=== PATIENT | male | born 1950 | race Caucasian/White ===

== ENCOUNTER 2021-06-26 08:56 | Inpatient (IN) | payer MEDICARE, SELFPAY ==
[2021-06-26] VITALS (16 sets, daily range): BP systolic 78–114; BP diastolic 58–86; PULSE 81–145; RESP 16–23; TEMP 36.4–37.7; O2SAT 86–96; BMI 27.2; BMI 27.4
--- NOTE | 2021-06-26 09:10 | EDS_ITS ---
HPI History of Present Illness Chief Complaint: Shortness of Breath Detail of Chief Complaint: I need fluids and I do not feel well Informant: patient Onset/Context/Timing Onset: Weeks (Onset approximately 2 weeks ago) Context: Sudden Onset Timing: Continuous Quality: General sense of unwellness and decreased p.o. intake Location: Home Current Severity: Mild Maximum Severity: Moderate Worsened by: Standing Relieved by: Nothing Associated Symptoms Associated Symptoms: Patient became annoyed because of all the questions that were being asked. Narrative Narrative: Patient is a 71-year-old male who presents because of not feeling well for the past 2 weeks with decreased p.o. intake and lightheadedness. He states he has not eaten well. He states he lives alone. He became annoyed with all the questions they were asked. He stated I need fluids Patient was informed that the reason I am asking all the question is to determine what tests are appropriate and what treatment needs to be initiated. Prior similar symptoms: No Recent Illness/Hospitalization: No PFSH PFSH Home Medications NK 06/26/21 [History Last Taken Unknown] Allergy/AdvReac Type Severity Reaction Status Date / Time Sulfa (Sulfonamide Allergy Unknown Unknown Verified 06/26/17 13:19 Antibiotics) as a child Surgical History History of hip replacement Social History (Updated 06/26/21 @ 16:49 by Susan Hassan) household members: none housing: apartment Smoking Status: Heavy Smoker (>10/day) alcohol intake: never substance use type: does not use ROS ROS ED Constitutional Constitutional ED: Denies chills, fever(s), subjective or sweats Eyes Eyes: Denies blurry vision, change in vision or diplopia ENT ENT ED: Denies ear pain, rhinorrhea or sore throat Cardiovascular Cardiovascular: Denies chest pain, orthopnea, palpitations or paroxysmal nocturnal dyspnea Respiratory/Chest Respiratory/Chest: Denies cough, dyspnea, dyspnea on exertion, orthopnea or paroxysmal nocturnal dyspnea Gastrointestinal Gastrointestinal: Denies abdominal pain, diarrhea, nausea or vomiting Genitourinary Genitourinary ED: Denies dysuria, hematuria or urinary frequency Musculoskeletal Musculoskeletal: Denies arthralgias, back pain, myalgias or neck pain Integumentary Denies rash Neurologic Neurologic: Reports weakness; Denies headache(s) or paresthesias Endocrine Endocrinology: Denies polydipsia, polyphagia or polyuria EXAM Physical Exam Const Vital Signs: 06/26/21 08:58 06/26/21 09:25 06/26/21 09:28 Temperature 99.1 F Temperature Source Oral Pulse Rate 93 Pulse Rate [Lying] Pulse Rate [Sitting] Pulse Rate [Standing] Respiratory Rate 16 Respiratory Effort Short of Breath Respiratory Depth Deep Respiratory Pattern Tachypnea Blood Pressure 107/68 Blood Pressure [Lying] Blood Pressure [Sitting] Blood Pressure [Standing] Blood Pressure Mean 81 Blood Pressure Mean [Lying] Blood Pressure Mean [Sitting] Blood Pressure Mean [Standing] Pulse Ox 93 92 Oxygen Delivery Method Room Air Room Air Nasal Cannula Oxygen Flow Rate (L/min) 2 06/26/21 09:30 06/26/21 11:00 06/26/21 11:55 Temperature 99.2 F H 98.3 F Temperature Source Oral Oral Pulse Rate 102 H 98 Pulse Rate [Lying] 145 H Pulse Rate [Sitting] 132 H Pulse Rate [Standing] 120 H Respiratory Rate 20 H 22 H Respiratory Effort Respiratory Depth Respiratory Pattern Blood Pressure 112/78 105/73 Blood Pressure [Lying] 106/70 Blood Pressure [Sitting] 114/78 Blood Pressure [Standing] 108/76 Blood Pressure Mean 89 83 Blood Pressure Mean [Lying] 82 Blood Pressure Mean [Sitting] 90 Blood Pressure Mean [Standing] 86 Pulse Ox 93 93 Oxygen Delivery Method Nasal Cannula Nasal Cannula Oxygen Flow Rate (L/min) 2.5 3 06/26/21 13:12 Temperature Temperature Source Pulse Rate 95 Pulse Rate [Lying] Pulse Rate [Sitting] Pulse Rate [Standing] Respiratory Rate 23 H Respiratory Effort Respiratory Depth Respiratory Pattern Blood Pressure 96/86 H Blood Pressure [Lying] Blood Pressure [Sitting] Blood Pressure [Standing] Blood Pressure Mean 89 Blood Pressure Mean [Lying] Blood Pressure Mean [Sitting] Blood Pressure Mean [Standing] Pulse Ox 95 Oxygen Delivery Method Nasal Cannula Oxygen Flow Rate (L/min) 2 Positive well nourished and well developed General Appearance ED: well developed and NAD; Negative for cyanotic or diaphoretic HEENT Reports TM's clear and dry mucous membranes HEENT Narrative: Head is atraumatic normocephalic. Nares patent. There is no nasal drainage noted. Tympanic Membrane ED: Yes TM's clear Mouth ED: Yes dry mucous membranes Mouth: dry mucous membranes Eyes PERRL and EOMs intact bilaterally General Eye ED: Negative for pale conjunctiva or scleral icterus Neck no lymphadenopathy, supple and no JVD General: Negative for tenderness Resp normal respiratory effort and clear to auscultation bilaterally Effort and Inspection: Negative for pain with movement Cardio regular rate, regular rhythm, S1 normal heart sound, S2 normal heart sound and no murmurs GI normal to inspection, nondistended, normoactive bowel sounds and non-tender Palpation: soft Back/Spine no CVA tenderness Thoracic Spine / Upper Back: Negative for thoracic spinal tenderness or paraspinal muscle tenderness Lumbar Spine / Lower Back: Negative for lumbar spinal tenderness Extremity normal to inspection General Extremety ED: Negative for edema or tenderness General Extremity: Negative for edema Neuro oriented x3 and No CN's II-XII intact bilaterally Sensorium / Orientation: alert Motor Exam: Negative for strength 5/5 throughout Psych mental status grossly normal Attitude: agitated Skin no rashes or lesions noted and no wounds MDM MDM MDM Narrative Medical decision making narrative: Clinically patient appears dehydrated. Since he has not eaten well in the last 2 weeksClinically patient appears dehydrated. Since he has not eaten well in the last 2 weeks Since patient was hypoxic chest x-ray and additional blood work was obtained. Chest x-ray reveals significant infiltrate on the right and infiltrate on the left. This is new from prior. Since patient symptoms started 2 weeks ago this may represent a bacterial pneumonia and he was treated with Rocephin 1 g and Zithromax 500 mg IV piggyback. He also received Decadron in the event this is Covid since he does have diarrhea as well. Once Covid test has returned we will contact hospitalist for admission. A liter bolus of normal saline was ordered since Lab Data Attestation: I reviewed the patient's lab results. Labs: Laboratory Results - last 24 hr 06/26/21 06/26/21 06/26/21 09:16 09:16 11:10 WBC 5.8 RBC 5.27 Hgb 15.5 Hct 45.8 MCV 86.9 MCH 29.4 MCHC 33.8 RDW Std Deviation 41.7 RDW Coeff of Zee 13.2 Plt Count 202 MPV 9.2 Immature Gran % (Auto) 0.300 Neut % (Auto) 72.7 H Lymph % (Auto) 17.3 L [place] % (Auto) 9.2 Eos % (Auto) 0.2 Baso % (Auto) 0.3 Absolute Neuts (auto) 4.2 Absolute Lymphs (auto) 1.01 Nucleated RBC % 0 Sodium 133 L Potassium 3.7 Chloride 104 Carbon Dioxide 21.0 Anion Gap 8 BUN 11 Creatinine 0.80 Estim Creat Clear Calc 89.98 Est GFR (MDRD) Af Amer 122 Est GFR (MDRD) Non-Af 101 BUN/Creatinine Ratio 13.7 Glucose 107 H Lactic Acid 1.5 Calcium 8.1 L Radiography Chest X-Ray - ED: 1 View, Read by ED Physician (Single view chest x-ray was very viewed/interpreted by me at 1213. Patient has a significant infiltrate on the right and infiltrate on the left. This is new from prior. ), Normal, Heart, Bony Structures, Right Infiltrate and Left Infiltrate Diagnostic Testing: Radiology Impression Chest X-Ray 06/26/21 11:47 IMPRESSION: Bilateral pulmonary infiltrates worse in the right hemithorax. Electronically Signed: Karthikeyan Benitez MD at 12:19 EDT , Service support , EKG Initial EKG: Attestation: I personally reviewed and interpreted this EKG as follows: Interpretation: Atrial Fibrillation (Ventricular rate is 98. Cures duration 98 ms. QT duration 342 ms. [place] is normal. Patient reports he is not compliant with his anticoagulant.) Critical Care Time Critical Care Time: Yes Critical care time (excluding procedures): 30-74 minutes (34), Including time spent: (History, physical, reevaluation, patient laboratory results and x-ray, initiation of therapy), Discussing w/Patient &/or Family/Talent Advisor (Reevaluation and speaking the patient on 2 separate occasions), Discussing w/Consultants and Arranging Admission or Transfer Discharge Plan Dx/Rx/DC Orders Clinical Impression: Bilateral interstitial pneumonia, Acute respiratory failure with hypoxia, Dehydration, Acute hypotension, Sepsis Disposition Disposition: [facility] Discharge Date/Time: 06/26/21 16:16
[2021-06-26 09:23] LABS: Absolute Lymphocyte Count 1.01 X10^3/uL (0.83-4.51); Absolute Neutrophil Count 4.2 X10^3/uL (2.0-7.7); Basophil# 0.02 X10^3/uL; Basophil% 0.3 % (0-1); Eosinophil# 0.01 X10^3/uL; Eosinophils% 0.2 % (0-5); Hematocrit 45.8 % (40-54); Hemoglobin 15.5 g/dL (13.0-16.5); Lymphocyte # 1.01 X10^3/ul (0.83-4.51); Lymphocyte % 17.3 % (19-41); Mean Corp Hgb Conc 33.8 g/dL (32-36); Mean Corpuscular Hgb 29.4 pg (27.0-32.0); Mean Corpuscular Volume 86.9 fL (80-94); Mean Platelet Vol. 9.2 fl (6.2-12.0); Monocyte# 0.54 X10^3/uL; Monocyte% 9.2 % (0-10); NRBC Flagged by Analyzer 0 % (0-5); Neutrophil # 4.24 X10^3/uL (2.7-7.7); Neutrophil % 72.7 % (47-70); Platelet Count 202 K/mm3 (150-450); RBC Distribution Width CV 13.2 % (11.6-14.6); RBC Distribution Width SD 41.7 fl (35.1-43.9); Red Blood Count 5.27 M/mm3 (4.6-6.2); White Blood Count 5.8 K/mm3 (4.4-11.0)
[2021-06-26 09:39] LABS: Anion Gap 8 (5-15); BUN 11 mg/dL (7-18); BUN/Creat Ratio 13.7 RATIO (10-20); Calcium,Total 8.1 mg/dL (8.5-10.1); Chloride 104 mmol/L (98-107); EST Glomerular Filtration Rate 101 mL/min (>60); Est Glom Filt Rate - Afr Amer 122 mL/min (>60); Estimated Creatinine Clearance 89.98 ml/min; Glucose 107 mg/dL (74-106); Potassium 3.7 mmol/L (3.5-5.1); Sodium Level 133 mmol/L (136-145)
[2021-06-26] MEDS: 0.9% Normal Saline 1,000 ML 1000 ML IV ×2 (09:51→14:00)
--- NOTE | 2021-06-26 11:01 | EKG12_ITS ---
Test Reason : SOB Blood Pressure : / mmHG Vent. Rate : 098 BPM Atrial Rate : 375 BPM P-R Int : 000 ms QRS Dur : 098 ms QT Int : 342 ms P-R-T Axes : 000 034 046 degrees QTc Int : 436 ms Atrial flutter with variable A-V block Abnormal ECG Confirmed by JESSICA JAY, RAMON ([id number]), legal editor LEYDI GUZMAN ([id number]) on 06/27/2021 10:53:54 AM Referred By: DERECK Confirmed By:RAMON LOPEZ MD
[2021-06-26 11:40] LABS: Lactic Acid 1.5 mmol/L (0.4-1.9)
--- NOTE | 2021-06-26 11:47 | RAD_ITS ---
STUDY: X-RAY CHEST REASON FOR EXAM: Male, 71 years old. Dyspnea, hypoxia TECHNIQUE: Single AP portable view of the chest. COMPARISON: Comparison is made with prior study dated 06/26/2017. FINDINGS: EKG electrodes are seen. Infiltration is seen in the peripheral aspect of the right upper lobe as well as at the right lung base and left lung base. There is no demonstrated pleural abnormality. Normal size heart. Normal mediastinum and annie. Normal visualized pulmonary arteries. Normal visualized aortic arch and descending thoracic aorta. There are diffuse degenerative changes of the visualized thoracic spine. Normal visualized ribs, clavicles, and shoulders. There is no demonstrated abnormality of the visualized soft tissue structures of the upper abdomen. RAD/Chest 1 View (Portable) IMPRESSION: Bilateral pulmonary infiltrates worse in the right hemithorax. Electronically Signed: Karthikeyan Benitez MD at 12:19 EDT , Service support ,
[2021-06-26] MEDS: dexAMETHasone 10 MG/ML Vial IV (12:38)
[2021-06-26] MEDS: Ceftriaxone 1 GM/50 ML BAG IV (12:38)
--- NOTE | 2021-06-26 14:18 | PCM.HP.STD ---
HPI - General General Date of Admission: 06/26/21 HPI Narrative KATRIN LANGLEY, is a 71 M who came to ER for generalized weakness, decreased oral intake over the last 2 weeks, fell at home. Pulse ox dropped to 88% on exertion. Patient is not Covid vaccinated. It seems patient is nonadherent to medications, doctors follow-up. Over the last 2 weeks, is getting progressively weak with cough, whitish sputum and shortness of breath although he denies shortness of breath himself. Patient also fell down couple days ago on the tabletop but not had major injury. Patient has loss of taste and smell. Patient denies chest pain. Denies nausea, vomiting, diarrhea. Patient also has a scab over right forearm and left hand from scratching. Patient is irritable in ED and gets annoyed with detailed questions and is not a good historian. Patient has decreased oral intake for last 2 weeks and he feels dizzy and lightheadedness on standing up. In ED, patient blood pressure is low, 107/68, temperature 99.1, tachypneic and pulse ox 93% 2.5 L Oxygen. Orthostatic blood pressure was negative. COVID-19 PCR is positive. Twelve-lead EKG A. fib/flutter 98 bpm with variable conduction. QTc 436 ms. Patient states he is not taking blood thinner as he cannot afford it. Chest x-ray shows bilateral pulmonary infiltrates worse in the right hemithorax. D-dimer is ordered. [facility] Home Medications NK 06/26/21 [History Last Taken Unknown] Allergy/AdvReac Type Severity Reaction Status Date / Time Sulfa (Sulfonamide Allergy Unknown Unknown Verified 06/26/17 13:19 Antibiotics) as a child Social History household members: none Smoking Status: Current every day smoker tobacco type: cigarettes alcohol intake: never substance use type: does not use ROS ROS Narrative Constitutional: Reports fatigue and weakness, loss of appetite. Patient is not vaccinated HEENT: Reports systems reviewed and no addt'l complaints, except as documented Respiratory/Chest: Chronic smoker since teenage a pack per day. Rest as described in HPI Gastrointestinal: Denies coffee ground emesis, hematemesis or vomiting Genitourinary: Denies burning urination or new urinary tract symptoms Musculoskeletal: Fall. Reports joint pain and limited range of motion Neurologic: Denies seizure-like activity skin: No ulcer. No rash Endocrinology: Reports systems reviewed and no addt'l complaints, except as documented Hematologic/Lymphatic: Reports systems reviewed and no addt'l complaints, except as documented Rest 12 ROS are negative except as mentioned in HPI Vital Signs Vital Signs Vital Signs: 06/26/21 08:58 06/26/21 09:25 06/26/21 09:28 Temperature 99.1 F Temperature Source Oral Pulse Rate 93 Pulse Rate [Lying] Pulse Rate [Sitting] Pulse Rate [Standing] Respiratory Rate 16 Respiratory Effort Short of Breath Respiratory Depth Deep Respiratory Pattern Tachypnea Blood Pressure 107/68 Blood Pressure [Lying] Blood Pressure [Sitting] Blood Pressure [Standing] Blood Pressure Mean 81 Blood Pressure Mean [Lying] Blood Pressure Mean [Sitting] Blood Pressure Mean [Standing] Pulse Ox 93 92 Oxygen Delivery Method Room Air Room Air Nasal Cannula Oxygen Flow Rate (L/min) 2 06/26/21 09:30 06/26/21 11:00 06/26/21 11:55 Temperature 99.2 F H 98.3 F Temperature Source Oral Oral Pulse Rate 102 H 98 Pulse Rate [Lying] 145 H Pulse Rate [Sitting] 132 H Pulse Rate [Standing] 120 H Respiratory Rate 20 H 22 H Respiratory Effort Respiratory Depth Respiratory Pattern Blood Pressure 112/78 105/73 Blood Pressure [Lying] 106/70 Blood Pressure [Sitting] 114/78 Blood Pressure [Standing] 108/76 Blood Pressure Mean 89 83 Blood Pressure Mean [Lying] 82 Blood Pressure Mean [Sitting] 90 Blood Pressure Mean [Standing] 86 Pulse Ox 93 93 Oxygen Delivery Method Nasal Cannula Nasal Cannula Oxygen Flow Rate (L/min) 2.5 3 06/26/21 13:12 Temperature Temperature Source Pulse Rate 95 Pulse Rate [Lying] Pulse Rate [Sitting] Pulse Rate [Standing] Respiratory Rate 23 H Respiratory Effort Respiratory Depth Respiratory Pattern Blood Pressure 96/86 H Blood Pressure [Lying] Blood Pressure [Sitting] Blood Pressure [Standing] Blood Pressure Mean 89 Blood Pressure Mean [Lying] Blood Pressure Mean [Sitting] Blood Pressure Mean [Standing] Pulse Ox 95 Oxygen Delivery Method Nasal Cannula Oxygen Flow Rate (L/min) 2 Weight Weight: 190 lb Body Mass Index (BMI) 27.2 Physical Exam Narrative General: Alert, Oriented x3, Cooperative HEENT: Atraumatic, PERRLA, EOMI, Normocephalic Oral: Dehydrated. No Gingival or Mucosal Lesions/ Ulcerations Neck: Supple, No JVD, Negative Carotid Bruits Lungs: Air entry diminished in bilateral lung bases. No crepitation/rhonchi Cardiovascular: Regular rate, Regular Rhythm, Normal S1, Normal S2, No murmurs Abdomen: Bowel Sounds Present, Soft, Non Tender, Non-Distended : No renal angle tenderness. No suprapubic tenderness. Extremities: No edema, Capillary Refill Less than 3 Seconds Skin: No rashes, No breakdown Musculoskeletal: No Tenderness to Palpation of Joints or Extremities Neurological: Cranial nerves II-XII grossly intact, DTR 2+/4 and Symmetrical, Neuro grossly intact Psych/Mental Status: Irritable. Results Lab / Micro Data Result Diagrams: 06/26/21 09:16 06/26/21 09:16 Labs: Laboratory Results - last 24 hr 06/26/21 09:16: WBC 5.8, RBC 5.27, Hgb 15.5, Hct 45.8, MCV 86.9, MCH 29.4, MCHC 33.8, RDW Std Deviation 41.7, RDW Coeff of Zee 13.2, Plt Count 202, MPV 9.2, Immature Gran % (Auto) 0.300, Neut % (Auto) 72.7 H, Lymph % (Auto) 17.3 L, [place] % (Auto) 9.2, Eos % (Auto) 0.2, Baso % (Auto) 0.3, Absolute Neuts (auto) 4.2, Absolute Lymphs (auto) 1.01, Nucleated RBC % 0 06/26/21 09:16: Sodium 133 L, Potassium 3.7, Chloride 104, Carbon Dioxide 21.0, Anion Gap 8, BUN 11, Creatinine 0.80, Estim Creat Clear Calc 89.98, Est GFR (MDRD) Af Amer 122, Est GFR (MDRD) Non-Af 101, BUN/Creatinine Ratio 13.7, Glucose 107 H, Calcium 8.1 L 06/26/21 11:10: Lactic Acid 1.5 06/26/21 11:10: COVID-19 (AVRIL) Detected Radiology Impression Chest X-Ray 06/26/21 11:47 IMPRESSION: Bilateral pulmonary infiltrates worse in the right hemithorax. Electronically Signed: Karthikeyan Benitez MD at 12:19 EDT , Service support , Assessment & Plan Assessment/Plan (1) Bilateral interstitial pneumonia: (2) Pneumonia due to COVID-19 virus: PLAN: This 71-year-old gentleman is being admitted for bilateral pneumonia secondary to COVID-19. 1. Bilateral interstitial pneumonia secondary to COVID-19: Patient is being admitted in PCU with low-grade fever, low BP, tachypneic and mild hypoxia. Inflammatory marker for COVID-19 ordered. The patient is out of window for remdesivir. Started on dexamethasone. Pneumonia work-up ordered. D-dimer is ordered. Consult ID if patient requires higher oxygen, like airflow, BiPAP. 2. Mild hyponatremia probably due to hypovolemia: IV fluid resuscitation with normal saline. Monitor electrolytes, magnesium. 3. Chronic A. fib, not on anticoagulant: Home medications continued. Start on therapeutic dose of Lovenox. 4. Chronic smoker with possibility of undiagnosed COPD: 5. BPH: Continue home medication Living will/advanced directive/end of life care: Patient does not have living will or advanced directive. Patient states he has son and daughter but does not name anyone is power of criminal attorney for health. But does not have after discussion of benefits/risks procedures involved with full code, DNR CC arrest and DNR CC, the patient opted for DNR-CC Arrest with no intubation Patient does not want artificial life support including intubation, tube feed, ventilator and/chest compression, central venous catheter, vasopressor and DC shock if needed Total time spent in [id number] encounter in discussion of advanced directive 16 minutes. Charges/Coding Visit Charges Inpatient E&M: 11974 Init Hosp L3 Procedures Hospitalists Procedures: 59962 Advncd Care Plan 30 Min
[2021-06-26 17:22] LABS: Fibrinogen 572 mg/dl (203-444); Prothrombin Time (Protime)PT. 12.9 SECONDS (11.7-14.9)
[2021-06-26 17:24] LABS: D-Dimer Quantitative (DVT/PE) 1.39 FEU/ug/m (0.27-0.49)
[2021-06-26 17:31] LABS: AST(SGOT) 42 U/L (15-37); Alanine Aminotransfer ALT/SGPT 28 U/L (16-61); Albumin, Serum 2.8 g/dL (3.2-5.0); Alkaline Phosphatase 79 U/L (45-117); Bilirubin, Direct 0.27 mg/dL (0.00-0.30); CPK Total, Creatine Kinase 134 U/L (39-308); Globulin 4.7 g/dL (2.2-4.2); LDH 304 U/L (87-241); Protein, Total 7.5 g/dL (6.4-8.2); Troponin-I HS 11 pg/mL (3.0-78.0)
[2021-06-26 17:34] LABS: Procalcitonin 0.09 ng/mL (0.00-0.09)
[2021-06-26 17:35] LABS: BNP,B-Type NATRIURETIC PEPTIDE 22.6 pg/mL (0-100)
--- NOTE | 2021-06-26 17:44 | CT_ITS ---
STUDY: CTA CHEST REASON FOR EXAM: Male, 71 years old. Moderate probability of PE, COVID 19 pneumonia RADIATION DOSAGE (If Supplied By Facility): CTDIvol = ( 10.91 ) mGy, DLP = ( 442.42 ) mGycm TECHNIQUE: The examination was performed with the intravenous administration of 100mL Isovue-370. Post-processing of the angiographic images was performed, with multiplanar reformation and 3D reconstruction. Individualized dose optimization techniques were used for this CT. COMPARISON: Chest x-ray FINDINGS: Normal enhancement of the main pulmonary artery and right and left pulmonary arteries. Normal enhancement of the bilateral peripheral pulmonary arteries. There is no demonstrated pulmonary embolism. There is atherosclerotic calcification of the aortic arch with tortuosity. There is no demonstrated aortic dissection. There are calcifications of the coronary arteries. Normal mediastinum. Normal hilar regions. Normal visualized trachea and bronchi. The lungs are well expanded. There is emphysema of the lungs. There are moderate interstitial septal and groundglass increased opacities of the lungs. There are cystic spaces of the upper chest. Normal pleura. Normal chest wall structures. Normal osseous structures. Normal visualized upper abdomen. CT/CTA Chest W/WO Contrast IMPRESSION: CTA chest examination, without a demonstrated pulmonary embolism or arterial dissection. Bilateral pneumonia. Electronically Signed: Roney Thompson MD at 19:48 EDT , Service support ,
[2021-06-26] MEDS: 0.9% Normal Saline 1,000 ML 100 ML IV (18:28)
--- NOTE | 2021-06-26 19:38 | PCS.PANDOC ---
PANDEMIC DOCUMENTATION INITIATED: Date: 05/21/2021 Time: 190
[2021-06-26] MEDS: Ipratropium/Albuterol Sulfate 3 ML AMPUL.NEB INHALATION (19:47)
[2021-06-26] MEDS: BACITRACIN 15 GM Tube 1 APPLIC TOPICAL (21:29)
[2021-06-26] MEDS: Enoxaparin 100 MG/ML Syringe 90 MG SC (21:31)
[2021-06-27] VITALS (16 sets, daily range): BP systolic 91–127; BP diastolic 53–75; PULSE 62–95; RESP 16–24; TEMP 36.7–38.4; O2SAT 89–94
--- NOTE | 2021-06-27 00:21 | PCM.HOSP.N ---
Hospitalist Note Patient low BPs since presentation, most recent repeat /, will administer 500 cc bolus and continue monitor. Goal MAP greater than 65.
[2021-06-27] MEDS: 0.9% Normal Saline 1,000 ML 100 ML IV ×2 (04:55→14:00)
[2021-06-27 07:02] LABS: Absolute Lymphocyte Count 0.79 X10^3/uL (0.83-4.51); Absolute Neutrophil Count 3.8 X10^3/uL (2.0-7.7); Hematocrit 43.8 % (40-54); Hemoglobin 14.6 g/dL (13.0-16.5); Lymphocyte # 0.79 X10^3/ul (0.83-4.51); Lymphocyte % 15.8 % (19-41); Mean Corp Hgb Conc 33.3 g/dL (32-36); Mean Corpuscular Hgb 29.1 pg (27.0-32.0); Mean Corpuscular Volume 87.4 fL (80-94); Mean Platelet Vol. 9.6 fl (6.2-12.0); Monocyte# 0.41 X10^3/uL; Monocyte% 8.2 % (0-10); NRBC Flagged by Analyzer 0 % (0-5); Neutrophil # 3.78 X10^3/uL (2.7-7.7); Neutrophil % 75.8 % (47-70); Platelet Count 204 K/mm3 (150-450); RBC Distribution Width SD 41.6 fl (35.1-43.9); Red Blood Count 5.01 M/mm3 (4.6-6.2)
[2021-06-27] MEDS: Ipratropium/Albuterol Sulfate 3 ML AMPUL.NEB INHALATION ×3 (07:15→19:56)
[2021-06-27 07:30] LABS: Anion Gap 6 (5-15); BUN 13 mg/dL (7-18); BUN/Creat Ratio 24.7 RATIO (10-20); Calcium,Total 7.8 mg/dL (8.5-10.1); Chloride 110 mmol/L (98-107); Creatinine, Serum 0.53 mg/dL (0.70-1.30); EST Glomerular Filtration Rate 165 mL/min (>60); Est Glom Filt Rate - Afr Amer 200 mL/min (>60); Estimated Creatinine Clearance 71.99 ml/min; Glucose 130 mg/dL (74-106); Magnesium 2.4 mg/dL (1.6-2.6); Potassium 3.8 mmol/L (3.5-5.1); Sodium Level 135 mmol/L (136-145)
[2021-06-27] MEDS: BACITRACIN 15 GM Tube 1 APPLIC TOPICAL ×2 (10:13→22:00)
[2021-06-27] MEDS: dexAMETHasone 10 MG/ML Vial 6 MG IV (10:14)
[2021-06-27] MEDS: Enoxaparin 100 MG/ML Syringe 90 MG SC ×2 (10:14→22:01)
[2021-06-27 12:24] LABS: M R Staph aureus DNA By PCR Negative (Negative); Probe Check PASS; Specimen Processing Control PASS
--- NOTE | 2021-06-27 14:49 | CASEMGMT ---
LOU JIMENEZ assessment: Initial transition planning/care coordination assessment. RN TONY introduced self and role at [facility], pt voices understanding and consents to assessment. Pt is currently on 11L nc and is able to speak in full sentences. Pt is A/Ox4 and answers all questions appropriately. Care providers, pharmacy, and demographics verified/updated. Presentation: SOB, weakness, with falls at home, low pulse ox Admitting dx: COVID pna PCP: [facility] physician Specialists: [facility] cardio in [place] Preferred Pharmacy: [facility] Insurance: [employer] Prescription Benefit: [employer] Living Will/HPOA: Pt states does not have LW/HPOA and declines AD info. LNOK: Lashon Beckwith, [id number] Living Arrangements: Pt lives in apartment and states no concerns at home. Pt is independent with ADL's. Transportation: Pt states drives self and states no transportation concerns. DME/HHC: Pt states no DME at home and states no preference for DME company, if needs oxygen at discharge. Pt states no hx of HHC or SNF in the past. 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 Pt states smokes a pack of cigarettes daily and does not drink ETOH. Pt states no further concerns/needs. CM to follow for therapy evals(pt refused today), home oxygen testing and any further discharge planning/needs. Advised pt to ask for CM if any further questions/concerns/needs arise, voices understanding. Pt Goal: Home Plan: Home, pending therapy evals, home oxygen testing. [place] JIMENE[place]
--- NOTE | 2021-06-27 17:19 | PCM.PN.HOSP ---
Subjective Subjective Patient was seen and examined. No acute events. He is on 11 L of oxygen. Objective Data Objective Data Vital Signs: Vital Signs Temp Pulse Resp BP Pulse Ox 98.1 F 88 16 103/55 L 94 06/27/21 11:54 06/27/21 14:45 06/27/21 13:03 06/27/21 11:54 06/27/21 11:54 Oxygen Flow Rate (L/min) 11 Oxygen Delivery Method Nasal Cannula Weight: 86.7 kg Body Mass Index (BMI) 27.4 Intake & Output: Intake and Output for Last 24 Hours 06/25/21 06/26/21 06/27/21 23:59 23:59 23:59 Intake Total 2745 / 2745 3033.33 / 3033.33 Output Total 725 / 725 800 / 800 Balance 2019 2233.33 / 2233.33 Lab / Micro Data Result Diagrams: 06/27/21 06:24 06/27/21 06:24 Labs: Laboratory Results - last 24 hr 06/26/21 09:16: Total Bilirubin 0.70, Direct Bilirubin 0.27, AST 42 H, ALT 28, Alkaline Phosphatase 79, Lactate Dehydrogenase 304 H, Total Creatine Kinase 134, Troponin I High Sens 11, C-React Prot Ext Range 92.00 H, Total Protein 7.5, Albumin 2.8 L, Globulin 4.7 H 06/26/21 09:16: B-Natriuretic Peptide 22.6 06/26/21 16:50: D-Dimer Quant (PE/DVT) 1.39 H* 06/26/21 16:50: PT 12.9, INR 1.0, Fibrinogen 572 H 06/26/21 16:50: Procalcitonin 0.09 06/27/21 06:24: WBC 5.0, RBC 5.01, Hgb 14.6, Hct 43.8, MCV 87.4, MCH 29.1, MCHC 33.3, RDW Std Deviation 41.6, RDW Coeff of Zee 13.0, Plt Count 204, MPV 9.6, Immature Gran % (Auto) 0.200, Neut % (Auto) 75.8 H, Lymph % (Auto) 15.8 L, [place] % (Auto) 8.2, Eos % (Auto) 0.0, Baso % (Auto) 0.0, Absolute Neuts (auto) 3.8, Absolute Lymphs (auto) 0.79 L, Nucleated RBC % 0 06/27/21 06:24: Sodium 135 L, Potassium 3.8, Chloride 110 H, Carbon Dioxide 19.0 L, Anion Gap 6, BUN 13, Creatinine 0.53 L, Estim Creat Clear Calc 71.99, Est GFR (MDRD) Af Amer 200, Est GFR (MDRD) Non-Af 165, BUN/Creatinine Ratio 24.7 H, Glucose 130 H, Calcium 7.8 L, Magnesium 2.4 06/27/21 10:10: MRSA (PCR) Negative Micro: Microbiology 06/26/21 23:08 Interface Orders Streptococcus pneumoniae Antigen (M - Final 06/26/21 23:08 Interface Orders Legionella Antigen - Final Radiography Diagnostic Testing: Radiology Impression Chest CTA 06/26/21 17:44 IMPRESSION: CTA chest examination, without a demonstrated pulmonary embolism or arterial dissection. Bilateral pneumonia. Electronically Signed: Roney Thompson MD at 19:48 EDT , Service support , Physical Exam Narrative Physical exam: General: Alert, Oriented x3, Cooperative, No apparent distress, on 11 L of oxygen HEENT: Atraumatic Oral: Moist Mucosa Neck: Supple Lungs: Diminished to auscultation Cardiovascular: HS I+II, regular, no murmurs Abdomen: Bowel Sounds Present, Soft, Non Tender Extremities: No edema Assessment & Plan Assessment/Plan (1) Bilateral interstitial pneumonia: (2) Pneumonia due to COVID-19 virus: PLAN: 1. Acute hypoxic respiratory failure secondary to acute COVID-19 pneumonia Patient is on 11 L of oxygen Admitting chest x-ray showed bilateral pulmonary infiltrates, worse in the right hemithorax CTA of the chest was negative for acute PE. Showed bilateral pneumonia Urine Legionella and streptococcal antigen is negative Blood cultures are pending Lasix 40 mg IV x1 We will continue to wean off for SPO2 more than 94%, encourage use of incentive spirometer 2. Hyponatremia, minimally improved, will discontinue IV fluids to prevent worsening of #1 3. Rest of chronic medical conditions including chronic atrial fibrillation, BPH appears to be stable Charges/Coding Visit Charges Inpatient E&M: 89783 Subs Hosp L2
[2021-06-27] MEDS: Furosemide 40 MG/4 ML Vial IV (17:40)
[2021-06-27] MEDS: Acetaminophen 325 MG Tablet 650 MG PO (22:13)
[2021-06-28] VITALS (15 sets, daily range): BP systolic 92–114; BP diastolic 58–77; PULSE 61–119; RESP 16–20; TEMP 36.4–37.3; O2SAT 90–95
--- NOTE | 2021-06-28 04:28 | NURSING ---
Pt refused vitals at this time. Pt continues to take oxygen off. Pt's SPO2 saturation is between 88-91% on roomair.
[2021-06-28 05:19] LABS: Absolute Lymphocyte Count 1.03 X10^3/uL (0.83-4.51); Absolute Neutrophil Count 8.4 X10^3/uL (2.0-7.7); Basophil# 0.01 X10^3/uL; Basophil% 0.1 % (0-1); Hematocrit 45.1 % (40-54); Hemoglobin 14.8 g/dL (13.0-16.5); Lymphocyte # 1.03 X10^3/ul (0.83-4.51); Lymphocyte % 10.3 % (19-41); Mean Corp Hgb Conc 32.8 g/dL (32-36); Mean Corpuscular Volume 88.3 fL (80-94); Mean Platelet Vol. 9.2 fl (6.2-12.0); Monocyte# 0.45 X10^3/uL; Monocyte% 4.5 % (0-10); NRBC Flagged by Analyzer 0 % (0-5); Neutrophil # 8.43 X10^3/uL (2.7-7.7); Neutrophil % 84.5 % (47-70); Platelet Count 258 K/mm3 (150-450); RBC Distribution Width CV 13.2 % (11.6-14.6); RBC Distribution Width SD 42.9 fl (35.1-43.9); Red Blood Count 5.11 M/mm3 (4.6-6.2)
--- NOTE | 2021-06-28 05:20 | NURSING ---
Pt refusing to allow staff to place telemetry leads back on saying leave me alone. Multiple attempts made, pt still refused. notified.
[2021-06-28 06:24] LABS: Anion Gap 7 (5-15); BUN 16 mg/dL (7-18); Calcium,Total 7.9 mg/dL (8.5-10.1); Chloride 106 mmol/L (98-107); Creatinine, Serum 0.84 mg/dL (0.70-1.30); EST Glomerular Filtration Rate 96 mL/min (>60); Est Glom Filt Rate - Afr Amer 116 mL/min (>60); Glucose 105 mg/dL (74-106); Potassium 3.9 mmol/L (3.5-5.1); Sodium Level 135 mmol/L (136-145)
[2021-06-28] MEDS: Enoxaparin 100 MG/ML Syringe 90 MG SC ×2 (09:59→22:19)
[2021-06-28] MEDS: dexAMETHasone 10 MG/ML Vial 6 MG IV (09:59)
[2021-06-28] MEDS: BACITRACIN 15 GM Tube 1 APPLIC TOPICAL ×2 (09:59→22:19)
[2021-06-28] MEDS: Ipratropium/Albuterol Sulfate 3 ML AMPUL.NEB INHALATION ×2 (13:03→19:47)
--- NOTE | 2021-06-28 15:09 | PCM.PN.HOSP ---
Subjective Subjective Patient was seen and examined. Currently on 8 L of oxygen. No acute event Objective Data Objective Data Vital Signs: Vital Signs Temp Pulse Resp BP Pulse Ox 98.9 F 119 H 16 99/77 95 06/28/21 14:36 06/28/21 14:57 06/28/21 14:36 06/28/21 14:36 06/28/21 14:36 Oxygen Flow Rate (L/min) 8 Oxygen Delivery Method Nasal Cannula Weight: 86.7 kg Body Mass Index (BMI) 27.4 Intake & Output: Intake and Output for Last 24 Hours 06/26/21 06/27/21 06/28/21 23:59 23:59 23:59 Intake Total 2745 / 2745 4550.00 / 4550.00 760 / 760 Output Total 725 / 725 1850 / 1850 600 / 600 Balance 2019 / 2019 2700.00 / 2700.00 160 / 160 Lab / Micro Data Result Diagrams: 06/28/21 05:02 06/28/21 05:02 Labs: Laboratory Results - last 24 hr 06/28/21 05:02: WBC 10.0, RBC 5.11, Hgb 14.8, Hct 45.1, MCV 88.3, MCH 29.0, MCHC 32.8, RDW Std Deviation 42.9, RDW Coeff of Zee 13.2, Plt Count 258, MPV 9.2, Immature Gran % (Auto) 0.600, Neut % (Auto) 84.5 H, Lymph % (Auto) 10.3 L, [place] % (Auto) 4.5, Eos % (Auto) 0.0, Baso % (Auto) 0.1, Absolute Neuts (auto) 8.4 H, Absolute Lymphs (auto) 1.03, Nucleated RBC % 0 06/28/21 05:02: Sodium 135 L, Potassium 3.9, Chloride 106, Carbon Dioxide 22.0, Anion Gap 7, BUN 16, Creatinine 0.84, Estim Creat Clear Calc 85.70, Est GFR (MDRD) Af Amer 116, Est GFR (MDRD) Non-Af 96, BUN/Creatinine Ratio 19.0, Glucose 105, Calcium 7.9 L Micro: Microbiology 06/26/21 23:08 Interface Orders Streptococcus pneumoniae Antigen (M - Final 06/26/21 23:08 Interface Orders Legionella Antigen - Final Physical Exam Narrative Physical exam: General: Alert, Oriented x3, Cooperative, No apparent distress, on 8 L of oxygen HEENT: Atraumatic Oral: Moist Mucosa Neck: Supple Lungs: Diminished to auscultation Cardiovascular: HS I+II, regular, no murmurs Abdomen: Bowel Sounds Present, Soft, Non Tender Extremities: No edema Assessment & Plan Assessment/Plan (1) Bilateral interstitial pneumonia: (2) Pneumonia due to COVID-19 virus: PLAN: 1. Acute hypoxic respiratory failure secondary to acute COVID-19 pneumonia Patient is on 8 L of oxygen Admitting chest x-ray showed bilateral pulmonary infiltrates, worse in the right hemithorax CTA of the chest was negative for acute PE. Showed bilateral pneumonia Urine Legionella and streptococcal antigen is negative Blood cultures are pending Lasix 40 mg IV x1 We will continue to wean off for SPO2 more than 94%, encourage use of incentive spirometer 2. Hyponatremia, minimally improved, will discontinue IV fluids to prevent worsening of #1 3. Rest of chronic medical conditions including chronic atrial fibrillation, BPH appears to be stable Charges/Coding Visit Charges Inpatient E&M: 27288 Subs Hosp L2
[2021-06-28] MEDS: Furosemide 40 MG/4 ML Vial IV (16:04)
[2021-06-29] VITALS (16 sets, daily range): BP systolic 90–129; BP diastolic 53–67; PULSE 58–88; RESP 17–20; TEMP 36.6–37.1; O2SAT 91–94
[2021-06-29 06:36] LABS: Absolute Lymphocyte Count 1.03 X10^3/uL (0.83-4.51); Absolute Neutrophil Count 4.8 X10^3/uL (2.0-7.7); Basophil# 0.01 X10^3/uL; Basophil% 0.2 % (0-1); Hematocrit 40.8 % (40-54); Hemoglobin 13.8 g/dL (13.0-16.5); Lymphocyte # 1.03 X10^3/ul (0.83-4.51); Lymphocyte % 16.1 % (19-41); Mean Corp Hgb Conc 33.8 g/dL (32-36); Mean Corpuscular Volume 85.7 fL (80-94); Mean Platelet Vol. 9.6 fl (6.2-12.0); Monocyte# 0.53 X10^3/uL; Monocyte% 8.3 % (0-10); NRBC Flagged by Analyzer 0 % (0-5); Neutrophil # 4.77 X10^3/uL (2.7-7.7); Neutrophil % 74.6 % (47-70); POSITIVE MORPHOLOGY YES; Platelet Count 265 K/mm3 (150-450); RBC Distribution Width CV 13.1 % (11.6-14.6); RBC Distribution Width SD 41.4 fl (35.1-43.9); Red Blood Count 4.76 M/mm3 (4.6-6.2); White Blood Count 6.4 K/mm3 (4.4-11.0)
[2021-06-29 06:39] LABS: Differential Indicated SCAN CRITERIA MET
[2021-06-29 06:52] LABS: Anion Gap 5 (5-15); BUN 14 mg/dL (7-18); BUN/Creat Ratio 20.3 RATIO (10-20); Calcium,Total 7.7 mg/dL (8.5-10.1); Chloride 100 mmol/L (98-107); Creatinine, Serum 0.69 mg/dL (0.70-1.30); EST Glomerular Filtration Rate 121 mL/min (>60); Est Glom Filt Rate - Afr Amer 146 mL/min (>60); Estimated Creatinine Clearance 71.99 ml/min; Glucose 100 mg/dL (74-106); Potassium 3.7 mmol/L (3.5-5.1); Sodium Level 132 mmol/L (136-145)
[2021-06-29] MEDS: Ipratropium/Albuterol Sulfate 3 ML AMPUL.NEB INHALATION ×3 (07:07→19:30)
[2021-06-29 07:13] LABS: Differential Comment SCANNED
[2021-06-29] MEDS: Enoxaparin 100 MG/ML Syringe 90 MG SC (08:58)
[2021-06-29] MEDS: Furosemide 40 MG/4 ML Vial IV (11:10)
[2021-06-29] MEDS: dexAMETHasone 10 MG/ML Vial 6 MG IV (11:12)
[2021-06-29] MEDS: 0.9% Saline Lock 10 ML Syringe IV ×2 (11:12→11:44)
[2021-06-29] MEDS: BACITRACIN 15 GM Tube 1 APPLIC TOPICAL (11:15)
--- NOTE | 2021-06-29 15:02 | PN.HOSP_ITS ---
Subjective Subjective Patient was seen and examined. He is currently on 6 L of oxygen. No new complaints. Objective Data Objective Data Vital Signs: Vital Signs Temp Pulse Resp BP Pulse Ox 98.1 F 85 20 H 129/58 H 92 06/29/21 11:07 06/29/21 13:18 06/29/21 13:18 06/29/21 11:07 06/29/21 11:07 Oxygen Flow Rate (L/min) 6 Oxygen Delivery Method Nasal Cannula Weight: 86.7 kg Body Mass Index (BMI) 27.4 Intake & Output: Intake and Output for Last 24 Hours 06/27/21 06/28/21 06/29/21 23:59 23:59 23:59 Intake Total 4550.00 / 4550.00 1979 / 1979 240 / 240 Output Total 1850 / 1850 1900 / 1900 125 / 125 Balance 2700.00 / 2700.00 80 / 80 115 / 115 Lab / Micro Data Result Diagrams: 06/29/21 05:45 06/29/21 05:45 Labs: Laboratory Results - last 24 hr 06/29/21 05:45: WBC 6.4, RBC 4.76, Hgb 13.8, Hct 40.8, MCV 85.7, MCH 29.0, MCHC 33.8, RDW Std Deviation 41.4, RDW Coeff of Zee 13.1, Plt Count 265, MPV 9.6, Immature Gran % (Auto) 0.800, Neut % (Auto) 74.6 H, Lymph % (Auto) 16.1 L, [place] % (Auto) 8.3, Eos % (Auto) 0.0, Baso % (Auto) 0.2, Absolute Neuts (auto) 4.8, Absolute Lymphs (auto) 1.03, Nucleated RBC % 0, Differential Comment SCANNED 06/29/21 05:45: Sodium 132 L, Potassium 3.7, Chloride 100, Carbon Dioxide 27.0, Anion Gap 5, BUN 14, Creatinine 0.69 L, Estim Creat Clear Calc 71.99, Est GFR (MDRD) Af Amer 146, Est GFR (MDRD) Non-Af 121, BUN/Creatinine Ratio 20.3 H, Glucose 100, Calcium 7.7 L Micro: Microbiology 06/26/21 23:08 Interface Orders Streptococcus pneumoniae Antigen (M - Final 06/26/21 23:08 Interface Orders Legionella Antigen - Final Physical Exam Narrative Physical exam: General: Alert, Oriented x3, Cooperative, No apparent distress, on 6 L of oxygen HEENT: Atraumatic Oral: Moist Mucosa Neck: Supple Lungs: Diminished to auscultation Cardiovascular: HS I+II, regular, no murmurs Abdomen: Bowel Sounds Present, Soft, Non Tender Extremities: No edema Assessment & Plan Assessment/Plan (1) Bilateral interstitial pneumonia: (2) Pneumonia due to COVID-19 virus: PLAN: 1. Acute hypoxic respiratory failure secondary to acute COVID-19 pneumonia Patient is on 6 L of oxygen Admitting chest x-ray showed bilateral pulmonary infiltrates, worse in the right hemithorax CTA of the chest was negative for acute PE. Showed bilateral pneumonia Urine Legionella and streptococcal antigen is negative Blood cultures are pending Lasix 40 mg IV x1 We will continue to wean off for SPO2 more than 94%, encourage use of incentive spirometer 2. Hyponatremia, minimally improved 3. Rest of chronic medical conditions including chronic atrial fibrillation, BPH appears to be stable Charges/Coding Visit Charges Inpatient E&M: 19646 Subs Hosp L3
--- NOTE | 2021-06-29 16:07 | CASEMGMT ---
Green sheet on chart for home oxygen, if pt qualifies at discharge. SStspring BLAKE CM
--- NOTE | 2021-06-29 21:41 | NURSING ---
Pt ripped out IV, not wearing oxygen, and refusing meds. Telling this RN to Get out of the room an yelling. Tele batteries changed and nasal cannula placed back in nose. Will notify MD of IV refusal.
[2021-06-30] VITALS (12 sets, daily range): BP systolic 89–99; BP diastolic 54–72; PULSE 44–65; RESP 18–24; TEMP 35.9–36.6; O2SAT 87–95
[2021-06-30] MEDS: Ipratropium/Albuterol Sulfate 3 ML AMPUL.NEB INHALATION ×3 (06:44→19:13)
[2021-06-30] MEDS: dexAMETHasone 4 MG Tablet 6 MG PO (10:47)
[2021-06-30] MEDS: Enoxaparin 100 MG/ML Syringe 90 MG SC (10:47)
[2021-06-30] MEDS: BACITRACIN 15 GM Tube 1 APPLIC TOPICAL ×2 (10:48→23:44)
--- NOTE | 2021-06-30 14:13 | PCM.PN.HOSP ---
Subjective Subjective Patient was seen and examined. Patient has been belligerent to staff. I had a talk with him. He is on 6 L of oxygen. Objective Data Objective Data Vital Signs: Vital Signs Temp Pulse Resp BP Pulse Ox 97.2 F L 55 L 20 H 90/55 L 87 06/30/21 10:35 06/30/21 13:28 06/30/21 13:28 06/30/21 10:35 06/30/21 10:42 Oxygen Flow Rate (L/min) [ 6 AMBULATING with Oxygen #1] Oxygen Flow Rate (L/min) [At 4 REST with Oxygen] Oxygen Flow Rate (L/min) 6 Oxygen Delivery Method Nasal Cannula Weight: 86.7 kg Body Mass Index (BMI) 27.4 Intake & Output: Intake and Output for Last 24 Hours 06/28/21 06/29/21 06/30/21 23:59 23:59 23:59 Intake Total 1979 / 1979 890 / 890 Output Total 1900 / 1900 825 / 825 Balance 80 / 80 65 / 65 Lab / Micro Data Result Diagrams: 06/29/21 05:45 06/29/21 05:45 Micro: Microbiology 06/26/21 23:08 Interface Orders Streptococcus pneumoniae Antigen (M - Final 06/26/21 23:08 Interface Orders Legionella Antigen - Final Physical Exam Narrative Physical exam: General: Alert, Oriented x3, Cooperative, No apparent distress, on 6 L of oxygen HEENT: Atraumatic Oral: Moist Mucosa Neck: Supple Lungs: Diminished to auscultation Cardiovascular: HS I+II, regular, no murmurs Abdomen: Bowel Sounds Present, Soft, Non Tender Extremities: No edema Assessment & Plan Assessment/Plan (1) Bilateral interstitial pneumonia: (2) Pneumonia due to COVID-19 virus: PLAN: 1. Acute hypoxic respiratory failure secondary to acute COVID-19 pneumonia On 6 L of oxygen Admitting chest x-ray showed bilateral pulmonary infiltrates, worse in the right hemithorax CTA of the chest was negative for acute PE. Showed bilateral pneumonia Urine Legionella and streptococcal antigen is negative Blood cultures are pending Continue on apixaban, decadron Will continue to wean off for SPO2 more than 94%, encourage use of incentive spirometer 2. Hyponatremia, minimally improved 3. Chronic atrial flutter, continue on apixaban 4. Rest of chronic medical conditions including BPH appears to be stable Charges/Coding Visit Charges Inpatient E&M: 66518 Subs Hosp L3
[2021-06-30] MEDS: APIXABAN 5 MG TABLET PO (23:44)
[2021-06-30] MEDS: Acetaminophen 325 MG Tablet 650 MG PO (23:45)
[2021-07-01] VITALS (16 sets, daily range): BP systolic 98–117; BP diastolic 10–73; PULSE 43–56; RESP 16–24; TEMP 36.2–36.7; O2SAT 90–97
[2021-07-01] MEDS: MELATONIN 10 MG TABLET PO ×2 (01:20→21:23)
[2021-07-01] MEDS: Ipratropium/Albuterol Sulfate 3 ML AMPUL.NEB INHALATION ×3 (01:29→19:38)
[2021-07-01] MEDS: Acetaminophen 325 MG Tablet 650 MG PO ×3 (07:57→21:22)
[2021-07-01] MEDS: dexAMETHasone 4 MG Tablet 6 MG PO (10:48)
[2021-07-01] MEDS: BACITRACIN 15 GM Tube 1 APPLIC TOPICAL ×2 (10:48→21:22)
[2021-07-01] MEDS: APIXABAN 5 MG TABLET PO ×2 (10:49→21:23)
--- NOTE | 2021-07-01 14:55 | PCM.PN.HOSP ---
Subjective Subjective Patient was seen and examined. He remains on 7 L of oxygen. No acute events overnight. Objective Data Objective Data Vital Signs: Vital Signs Temp Pulse Resp BP Pulse Ox 98.1 F 55 L 24 H 98/68 90 07/01/21 10:36 07/01/21 10:36 07/01/21 10:36 07/01/21 10:36 07/01/21 13:49 Oxygen Flow Rate (L/min) [ 6 AMBULATING with Oxygen #1] Oxygen Flow Rate (L/min) [At 4 REST with Oxygen] Oxygen Flow Rate (L/min) 7 Oxygen Delivery Method Nasal Cannula Weight: 86.7 kg Body Mass Index (BMI) 27.4 Intake & Output: Intake and Output for Last 24 Hours 06/29/21 06/30/21 07/01/21 23:59 23:59 23:59 Intake Total 890 / 890 1080 / 1080 Output Total 825 / 825 475 / 975 500 / 500 Balance 65 / 65 605 / 105 -500 / -500 Lab / Micro Data Result Diagrams: 06/29/21 05:45 06/29/21 05:45 Micro: Microbiology 06/26/21 23:08 Interface Orders Streptococcus pneumoniae Antigen (M - Final 06/26/21 23:08 Interface Orders Legionella Antigen - Final Physical Exam Narrative Physical exam: General: Alert, Oriented x3, Cooperative, No apparent distress, on 7 L of oxygen HEENT: Atraumatic Oral: Moist Mucosa Neck: Supple Lungs: Diminished to auscultation Cardiovascular: HS I+II, regular, no murmurs Abdomen: Bowel Sounds Present, Soft, Non Tender Extremities: No edema Assessment & Plan Assessment/Plan (1) Bilateral interstitial pneumonia: (2) Pneumonia due to COVID-19 virus: PLAN: 1. Acute hypoxic respiratory failure secondary to acute COVID-19 pneumonia, oxygen requirements appear to have stalled On 7 L of oxygen Admitting chest x-ray showed bilateral pulmonary infiltrates, worse in the right hemithorax CTA of the chest was negative for acute PE. Showed bilateral pneumonia Urine Legionella and streptococcal antigen is negative Blood cultures are pending Continue on apixaban, decadron Will continue to wean off for SPO2 more than 94%, encourage use of incentive spirometer 2. Hyponatremia, minimally improved 3. Chronic atrial flutter, continue on apixaban 4. Rest of chronic medical conditions including BPH appears to be stable Charges/Coding Visit Charges Inpatient E&M: 20787 Subs Hosp L3
[2021-07-02] VITALS (7 sets, daily range): BP systolic 98–110; BP diastolic 61–84; PULSE 47–78; RESP 18–20; TEMP 36.4–36.7; O2SAT 85–95
[2021-07-02] MEDS: Ipratropium/Albuterol Sulfate 3 ML AMPUL.NEB INHALATION (07:09)
[2021-07-02 07:17] LABS: Absolute Lymphocyte Count 1.27 X10^3/uL (0.83-4.51); Absolute Neutrophil Count 6.8 X10^3/uL (2.0-7.7); Basophil# 0.02 X10^3/uL; Basophil% 0.2 % (0-1); Eosinophil# 0.01 X10^3/uL; Eosinophils% 0.1 % (0-5); Hematocrit 40.7 % (40-54); Hemoglobin 13.4 g/dL (13.0-16.5); Lymphocyte # 1.27 X10^3/ul (0.83-4.51); Lymphocyte % 14.3 % (19-41); Mean Corp Hgb Conc 32.9 g/dL (32-36); Mean Corpuscular Hgb 29.4 pg (27.0-32.0); Mean Corpuscular Volume 89.3 fL (80-94); Mean Platelet Vol. 9.4 fl (6.2-12.0); Monocyte# 0.63 X10^3/uL; Monocyte% 7.1 % (0-10); NRBC Flagged by Analyzer 0 % (0-5); Neutrophil # 6.83 X10^3/uL (2.7-7.7); Neutrophil % 76.7 % (47-70); Platelet Count 355 K/mm3 (150-450); RBC Distribution Width CV 13.2 % (11.6-14.6); RBC Distribution Width SD 43.6 fl (35.1-43.9); Red Blood Count 4.56 M/mm3 (4.6-6.2); White Blood Count 8.9 K/mm3 (4.4-11.0)
[2021-07-02 07:57] LABS: ALB/GLOB Ratio 0.6 RATIO (0.9-2.4); AST(SGOT) 64 U/L (15-37); Alanine Aminotransfer ALT/SGPT 160 U/L (16-61); Albumin, Serum 2.3 g/dL (3.2-5.0); Alkaline Phosphatase 70 U/L (45-117); Anion Gap 6 (5-15); BUN 18 mg/dL (7-18); BUN/Creat Ratio 30.2 RATIO (10-20); Chloride 103 mmol/L (98-107); EST Glomerular Filtration Rate 143 mL/min (>60); Est Glom Filt Rate - Afr Amer 173 mL/min (>60); Estimated Creatinine Clearance 71.99 ml/min; Globulin 4.1 g/dL (2.2-4.2); Glucose 124 mg/dL (74-106); Potassium 4.2 mmol/L (3.5-5.1); Protein, Total 6.4 g/dL (6.4-8.2); Sodium Level 137 mmol/L (136-145)
[2021-07-02] MEDS: dexAMETHasone 4 MG Tablet 6 MG PO (09:56)
[2021-07-02] MEDS: BACITRACIN 15 GM Tube 1 APPLIC TOPICAL (09:57)
[2021-07-02] MEDS: APIXABAN 5 MG TABLET PO (09:58)
--- NOTE | 2021-07-02 11:31 | CASEMGMT ---
Addendum entered by Stephanie Cool 07/02/21 11:42: Pt left AMA. Cory BLAKE CM Addendum entered by Stephanie Cool 07/02/21 11:35: Per Dr. Torres, pt states he does not need home oxygen and is planning to leave AMA today. CM to follow. Cory BLAKE CM Original Note: Pt currently needs 6L at rest and 8L w/ exertion oxygen. CM to follow. Cory BLAKE CM
--- NOTE | 2021-07-02 11:41 | DS.PCM_ITS ---
Providers Date of Admission: 06/26/21 Primary Care Physician: Dr. David Pineda MD Reason For Visit: BILATERAL PNEUMONIA RESPIRATORY FAILURE WITH Diagnosis Discharge Diagnosis (1) Bilateral interstitial pneumonia: Status: Acute Code(s): J84.9 - Interstitial pulmonary disease, unspecified (2) Pneumonia due to COVID-19 virus: Status: Acute Code(s): U07.1 - COVID-19; J12.82 - Pneumonia due to coronavirus disease 2019 Medications at Discharge Home Medications NK 06/26/21 Hospital Course Operations None Procedures None Summary of Care Provided Minutes Spent on Discharge: 32 Hospital Course: 71-year-old male presents on 921 with weakness decreased oral intake over the past 2 weeks. Patient was admitted with COVID-19 pneumonia. Patient was started on dexamethasone that was side the window for remdesivir. Patient's oxygen requirements slowly decreased but still is requiring 5 to 6 L with just mild exertion. Patient was. Routed to nursing and other providers during his hospitalization. Today, I saw the patient for the first time and he insisted that he was not leaving the hospital until he was off of oxygen. I told him that that would not be happening and that he would require oxygen. I had him stand up inside bed and told him the December. He barely lifted his feet off the floor and his pulse ox dropped down to 87% on 6 L nasal cannula. Asked him if he was using incentive spirometer or the Acapella valve said that use it hourly but only once an hour. When I told him that he needs to use those 10 times per hour he struck that off does not be necessary. Patient was confronted by this provider to show more respect to this the staff that is taking care of him. And we are expecting him to require further hospitalization to get to the point where he would require less oxygen. He stood up stated that he was leaving. He denied the opportunity to receive oxygen stating that he would want not want to be discharged with oxygen and I was going to go to another hospital. He stated that he was getting go to the [facility] across the street. I told him that that is an office building and not in ER. He said that he would then go to my [facility]. Told him that their assessment would be the same for him to continue with oxygen at home when he is medically ready which she is not at this point in time. Patient left the hospital without oxygen. He has a high likelihood of returning to the emergency room given the severity of his illness though overall appear to be stable from his admission. Physical Exam Const alert Constitutional Narrative: Was able to stand at the side of the bed but barely lift his feet up when I asked to December. Did not appear to be that it was not something he physically could not do but something that he just did not want to do. Weight / BMI Weight Weight: 86.7 kg Body Mass Index (BMI) 27.4 ABG / Lab / Microbiology Data Result Diagrams: 07/02/21 07:00 07/02/21 07:00 Laboratory: Laboratory Results - last 24 hr 07/02/21 07:00: WBC 8.9, RBC 4.56 L, Hgb 13.4, Hct 40.7, MCV 89.3, MCH 29.4, MCHC 32.9, RDW Std Deviation 43.6, RDW Coeff of Zee 13.2, Plt Count 355, MPV 9.4, Immature Gran % (Auto) 1.600 H, Neut % (Auto) 76.7 H, Lymph % (Auto) 14.3 L , [place] % (Auto) 7.1, Eos % (Auto) 0.1, Baso % (Auto) 0.2, Absolute Neuts (auto) 6.8, Absolute Lymphs (auto) 1.27, Nucleated RBC % 0 07/02/21 07:00: Sodium 137, Potassium 4.2, Chloride 103, Carbon Dioxide 28.0, Anion Gap 6, BUN 18, Creatinine 0.60 L, Estim Creat Clear Calc 71.99, Est GFR (MDRD) Af Amer 173, Est GFR (MDRD) Non-Af 143, BUN/Creatinine Ratio 30.2 H, Glucose 124 H, Calcium 8.0 L, Total Bilirubin 0.60, AST 64 H, ALT 160 H, Alkaline Phosphatase 70, Total Protein 6.4, Albumin 2.3 L, Globulin 4.1, Albumin/Globulin Ratio 0.6 L Microbiology: Microbiology 06/26/21 16:50 Blood Culture (Wb) - Anticubital Right Blood Culture - Final No growth in 5 days. 06/26/21 16:45 Blood Culture (Wb) - Left Wrist Blood Culture - Final No growth in 5 days. 06/26/21 23:08 Interface Orders Streptococcus pneumoniae Antigen (M - Final 06/26/21 23:08 Interface Orders Legionella Antigen - Final Meaningful Use Info Meaningful Use Diagnoses (Choose all that apply): None applicable Discharge Plan Admission Admit Date/Time: 06/26/21 16:04 Primary Reason for Your Visit: COVID 19 Attending Provider: Morro Torres Primary Care Provider: David Pineda Discharge Orders/Prescriptions Prescriptions: No Action NK RF: 0 Referrals / Follow Up: David Pineda MD [Primary Care Provider] - Care Physician,No Primary [NON-STAFF] - Disposition Disposition (needs filled in before D/C Order can be placed): Against Medical Advice Charges/Coding Visit Charges Inpatient E&M: 44897 Disch Hosp
== END 2021-07-02 11:38 | disposition left against medical advice (07) | DRG 177 ==
LOC: ED 14:07 → PCU 16:13
PROVIDERS: Internal Medicine; Admitting Provider Internal Medicine; Emergency Provider Emergency Medicine; PCP Family Medicine
DX: U07.1 COVID-19 (principal); J12.82 Pneumonia due to coronavirus disease 2019; J96.01 Acute respiratory failure with hypoxia; E87.1 Hypo-osmolality and hyponatremia; I48.20 Chronic atrial fibrillation, unspecified; I95.9 Hypotension, unspecified; E86.0 Dehydration; N40.0 Benign prostatic hyperplasia without lower urinary tract symptoms; F17.210 Nicotine dependence, cigarettes, uncomplicated; Z91.14 Patient's other noncompliance with medication regimen; Z96.649 Presence of unspecified artificial hip joint
CPT/HCPCS: 36415; 71045; 71275; 80048; 80053; 80076; 82550; 83605; 83615; 83735; 83880; 84145; 84484; 85025; 85379; 85384; 85610; 86140; 87040; 87449; 87635; 87641; 93005; 94640; 94667; 94668; 97110; 97116; 97162; 97165; 97530; 97535; 97802; 99251; 99285; 99406; J7030; J7040; Q9967; U0005; A4216; G0463; J1940; U0003

== ENCOUNTER 2021-07-15 19:59 | Emergency (ER) | payer MEDICARE, SELFPAY ==
[2021-07-15 20:00] VITALS: BP 100/83; PULSE 128; RESP 24; TEMP 37.1; O2SAT 91; BMI 27.6
[2021-07-15 20:18] VITALS: BP 105/67; PULSE 105; PULSE 121; RESP 18; TEMP 37.2; O2SAT 89; O2SAT 94
--- NOTE | 2021-07-15 20:29 | EKG12_ITS ---
Test Reason : DYSRHYTHMIA Blood Pressure : / mmHG Vent. Rate : 109 BPM Atrial Rate : 108 BPM P-R Int : 000 ms QRS Dur : 096 ms QT Int : 334 ms P-R-T Axes : 000 035 051 degrees QTc Int : 449 ms Atrial fibrillation Abnormal ECG Confirmed by JESSICA JAY, RAMON ([id number]), digital editor LEYDI GUZMAN ([id number]) on 07/16/2021 1:09:29 PM Referred By: Confirmed By:RAMON LOPEZ MD
--- NOTE | 2021-07-15 20:34 | EX.ED.DYSGE1 ---
HPI History of Present Illness Chief Complaint: Shortness of Breath Detail of Chief Complaint: I do not feel well Informant: patient Onset/Context/Timing Onset: Days Context: Gradual Onset Timing: Continuous and Waxes and wanes Quality: Dyspnea on exertion, aches, generalized weakness Location: Not applicable Current Severity: Patient not forthcoming with information and was perturbed that I was askin Worsened by: Dyspnea on exertion Relieved by: Nothing Associated Symptoms Associated Symptoms: Diagnosed with Covid, A. fib discharged from [facility] Narrative Narrative: Patient is an elderly male who has history of Covid. He was initially admitted to [facility]. He left because he did not feel he was getting appropriate care. He went to [facility] and was in the hospital for 2 weeks. He was discharged on July 11. He does have history atrial for. His last dose of anticoagulant was yesterday. He states has not had the funds to purchase any anticoagulant. He continues to smoke. He is on home oxygen since his pulse ox it was low at the time of discharge. He states he feels terrible. He has generalized weakness. He complains of aches. He complains of shortness of breath. Patient became perturbed that I was asking questions. He did not inform me that he left this facility because he did not feel he was getting the appropriate care Prior similar symptoms: Yes Recent Illness/Hospitalization: Yes PFSH PFS Home Medications NK 07/15/21 [History Last Taken Unknown] apixaban [Eliquis] 5 mg PO BID #60 tab 07/16/21 [Rx Last Taken Unknown] diltiazem HCl 120 mg PO BID #60 cap 07/16/21 [Rx Last Taken Unknown] metformin 500 mg PO DAILY #30 tab 07/16/21 [Rx Last Taken Unknown] Allergy/AdvReac Type Severity Reaction Status Date / Time Sulfa (Sulfonamide Allergy Unknown Unknown Verified 07/15/21 20:16 Antibiotics) as a child Surgical History History of hip replacement Social History household members: none housing: apartment Smoking Status: Heavy Smoker (>10/day) alcohol intake: never substance use type: does not use ROS ROS ED Constitutional Constitutional ED: Denies chills, fever(s), subjective or sweats Eyes Eyes: Denies blurry vision or change in vision ENT ENT ED: Reports sore throat; Denies ear pain or rhinorrhea Cardiovascular Cardiovascular: Reports palpitations and racing heartbeat; Denies chest pain, orthopnea or paroxysmal nocturnal dyspnea Respiratory/Chest Respiratory/Chest: Reports cough, dyspnea and dyspnea on exertion; Denies orthopnea, paroxysmal nocturnal dyspnea or sputum Gastrointestinal Gastrointestinal: Denies abdominal pain, diarrhea, nausea or vomiting Genitourinary Genitourinary ED: Denies dysuria, hematuria or urinary frequency Musculoskeletal Musculoskeletal: Reports arthralgias and myalgias; Denies back pain or neck pain Integumentary Denies rash Neurologic Neurologic: Reports weakness; Denies headache(s) or paresthesias Endocrine Endocrinology: Denies polydipsia, polyphagia or polyuria Allergic/Immunologic Allergic/Immunologic ED: Denies mouth swelling, tongue swelling or urticaria EXAM Physical Exam Const Vital Signs: 07/15/21 20:00 07/15/21 20:18 Temperature 98.8 F 98.9 F Temperature Source Oral Oral Pulse Rate 128 H 121 H Respiratory Rate 24 H 18 Respiratory Effort Short of Breath Respiratory Depth Normal Blood Pressure 100/83 H 105/67 Blood Pressure Mean 88 79 Pulse Ox 91 94 Oxygen Delivery Method Room Air Nasal Cannula Oxygen Flow Rate (L/min) 2 Positive well nourished and well developed General Appearance ED: well developed and NAD HEENT HEENT Narrative: Head is atraumatic normocephalic. Ears normal. Nares patent. Posterior pharynx out erythema exudate. Uvula midline. Patient wears corrective lenses. Eyes PERRL and EOMs intact bilaterally General Eye ED: Negative for pale conjunctiva or scleral icterus Neck no lymphadenopathy, supple and no JVD General: Negative for tenderness Chest Wall inspection of chest normal Resp normal respiratory effort and No clear to auscultation bilaterally Auscultation: rales right (Basis only) base; Negative for wheezes or diminished lung sounds Cardio no murmurs Rate: tachycardic Rhythm: abnormal rhythm GI normal to inspection, nondistended, normoactive bowel sounds, non-tender and non-distended Palpation: soft Back/Spine no CVA tenderness Cervical Spine: Negative for cervical spine tenderness Thoracic Spine / Upper Back: Negative for thoracic spinal tenderness or paraspinal muscle tenderness Lumbar Spine / Lower Back: Negative for lumbar spinal tenderness Extremity normal to inspection Extremity Narrative: There is no asymmetry, swelling, discoloration, leg vein distention, palpable cords or tenderness along the distribution of the deep venous system. General Extremety ED: Negative for edema or tenderness General Extremity: Negative for edema Neuro oriented x3 and CN's II-XII intact bilaterally Sensorium / Orientation: alert Motor Exam: strength 5/5 throughout Psych mental status grossly normal Attitude: agitated Skin no rashes or lesions noted and no wounds MDM MDM MDM Narrative Medical decision making narrative: Monitor is either A. fib with RVR or a flutter with variable block. We will need to anticoagulate. Will obtain appropriate work-up to assess patient's symptoms. Patient is on home oxygen. His pulse ox 80% on room air. With oxygen he is not hypoxic. Patient states he does have funds to purchase prescriptions. His heart rate is 95 200. Plan is to discharge with prescription for Metformin, Eliquis and Cardizem for his A. fib. His information management specialist is an affiliated with [facility] by [facility]. Lab Data Attestation: I reviewed the patient's lab results. Lab results narrative: White count is elevated which is nonspecific. Electrolyte panel reveals an elevated BUN to creatinine ratio. Glucose is elevated 401. Patient does not have history of diabetes. He is on Decadron to treat his Covid pneumonia. Labs: Laboratory Results - last 24 hr 07/15/21 07/15/21 20:47 20:47 WBC 13.1 H RBC 5.43 Hgb 16.1 Hct 47.9 MCV 88.2 MCH 29.7 MCHC 33.6 RDW Std Deviation 47.9 H RDW Coeff of Zee 14.9 H Plt Count 170 MPV 9.8 Immature Gran % (Auto) 1.500 H Neut % (Auto) 74.1 H Lymph % (Auto) 17.4 L [place] % (Auto) 5.3 Eos % (Auto) 1.5 Baso % (Auto) 0.2 Absolute Neuts (auto) 9.7 H Absolute Lymphs (auto) 2.28 Nucleated RBC % 0 Sodium 136 Potassium 4.3 Chloride 104 Carbon Dioxide 24.0 Anion Gap 8 BUN 33 H Creatinine 0.96 Estim Creat Clear Calc 74.99 Est GFR (MDRD) Af Amer 99 Est GFR (MDRD) Non-Af 82 BUN/Creatinine Ratio 34.2 H Glucose 401 H Calcium 8.4 L Troponin I High Sens 10 Radiography Chest X-Ray - ED: 1 View, Read by ED Physician (Single view portable chest x-ray reveals interstitial bilateral infiltrates consistent with Covid.), No Infiltrates and Right Infiltrate Diagnostic Testing: Clinical Impression(s) from Imaging Studies Chest X-Ray 07/15/21 21:10 IMPRESSION: Slight interval worsening of bilateral airspace opacities concerning for infection. Electronically Signed: Amadou Pollard MD at 21:59 EDT Tel , Service support , Rhythm Strip Rhythm Strip: A-fib Rate: 120 Ectopy: None EKG Initial EKG: Attestation: I personally reviewed and interpreted this EKG as follows: Interpretation: Atrial Flutter (A flutter with variable block versus A. fib with a ventricular rate of 109. QRS duration 96 ms. QT duration 334 ms. [place] is normal. There is no acute ischemic changes noted.) Discharge Plan Triage Chief Complaint: Shortness of Breath ED Provider: Chintan Romero Dx/Rx/DC Orders Clinical Impression: Atrial fibrillation with rapid ventricular response, Pneumonia due to 2019-nCoV, Chronic respiratory failure with hypoxia, Acute hyperglycemia, Acute prerenal azotemia Instructions: Coronavirus Disease 2019 (COVID-19): Caring for Yourself or Others, ED AFIB, ED Renal Insufficiency, ED Hyperglycemia New Susp Diabetes Prescriptions: New metformin 500 mg tablet 500 mg PO DAILY Qty: 30 RF: 0 diltiazem HCl 120 mg capsule,extended release 12 hr 120 mg PO BID Qty: 60 RF: 0 Eliquis 5 mg tablet 5 mg PO BID Qty: 60 RF: 0 No Action NK RF: 0 Primary Care Provider: David Pineda Referrals: David Pineda MD [Primary Care Provider] - 5-7 Days Disposition Disposition: Home, Self Care
[2021-07-15 20:55] LABS: Absolute Lymphocyte Count 2.28 X10^3/uL (0.83-4.51); Absolute Neutrophil Count 9.7 X10^3/uL (2.0-7.7); Basophil# 0.03 X10^3/uL; Basophil% 0.2 % (0-1); Eosinophil# 0.19 X10^3/uL; Eosinophils% 1.5 % (0-5); Hematocrit 47.9 % (40-54); Hemoglobin 16.1 g/dL (13.0-16.5); Lymphocyte # 2.28 X10^3/ul (0.83-4.51); Lymphocyte % 17.4 % (19-41); Mean Corp Hgb Conc 33.6 g/dL (32-36); Mean Corpuscular Hgb 29.7 pg (27.0-32.0); Mean Corpuscular Volume 88.2 fL (80-94); Mean Platelet Vol. 9.8 fl (6.2-12.0); Monocyte% 5.3 % (0-10); NRBC Flagged by Analyzer 0 % (0-5); Neutrophil % 74.1 % (47-70); Platelet Count 170 K/mm3 (150-450); RBC Distribution Width CV 14.9 % (11.6-14.6); RBC Distribution Width SD 47.9 fl (35.1-43.9); Red Blood Count 5.43 M/mm3 (4.6-6.2); White Blood Count 13.1 K/mm3 (4.4-11.0)
--- NOTE | 2021-07-15 21:10 | RAD_ITS ---
INDICATION: Dyspnea, rales right base EXAMINATION/TECHNIQUE: X-RAY - XR Chest 1 View COMPARISON: 06/26/2021. FINDINGS: Slight interval worsening of bilateral airspace opacities, worse on the right. The cardiomediastinal silhouette is stable. No pleural effusion or pneumothorax. The osseous structures are unchanged. RAD/Chest 1 View (Portable) IMPRESSION: Slight interval worsening of bilateral airspace opacities concerning for infection. Electronically Signed: Amadou Pollard MD at 21:59 EDT Tel , Service support ,
[2021-07-15 21:16] LABS: Anion Gap 8 (5-15); BUN 33 mg/dL (7-18); BUN/Creat Ratio 34.2 RATIO (10-20); Calcium,Total 8.4 mg/dL (8.5-10.1); Chloride 104 mmol/L (98-107); Creatinine, Serum 0.96 mg/dL (0.70-1.30); EST Glomerular Filtration Rate 82 mL/min (>60); Est Glom Filt Rate - Afr Amer 99 mL/min (>60); Estimated Creatinine Clearance 74.99 ml/min; Glucose 401 mg/dL (74-106); Potassium 4.3 mmol/L (3.5-5.1); Sodium Level 136 mmol/L (136-145); Troponin-I HS 10 pg/mL (3.0-78.0)
[2021-07-15] MEDS: APIXABAN 5 MG TABLET 10 MG PO (21:42)
[2021-07-16 00:17] VITALS: BP 103/69; PULSE 104; RESP 19; O2SAT 93
[2021-07-16] MEDS: dilTIAZem 60 MG Tablet PO (00:39)
== END 2021-07-16 01:04 | disposition home or self-care (01) ==
PROVIDERS: Emergency Provider Emergency Medicine; PCP Family Medicine
DX: R06.02 Shortness of breath (principal); I48.91 Unspecified atrial fibrillation; J96.11 Chronic respiratory failure with hypoxia; R73.9 Hyperglycemia, unspecified; R79.89 Other specified abnormal findings of blood chemistry; F17.200 Nicotine dependence, unspecified, uncomplicated; Z99.81 Dependence on supplemental oxygen; Z79.01 Long term (current) use of anticoagulants; Z79.899 Other long term (current) drug therapy; Z86.16 Personal history of COVID-19; Z96.649 Presence of unspecified artificial hip joint
CPT/HCPCS: 71045; 80048; 84484; 85025; 93005; 94667; 99251; 99285; G0463

== ENCOUNTER 2022-09-14 21:36 | Emergency (ER) | payer MEDICARE, SELFPAY ==
[2022-09-14 21:38] VITALS: BP 120/91; PULSE 122; RESP 15; TEMP 36.4; O2SAT 91; BMI 30.3
[2022-09-14 21:48] VITALS: PULSE 110; RESP 21; O2SAT 89
--- NOTE | 2022-09-14 21:48 | EKG12_ITS ---
Test Reason : CP Blood Pressure : / mmHG Vent. Rate : 106 BPM Atrial Rate : 394 BPM P-R Int : 000 ms QRS Dur : 106 ms QT Int : 350 ms P-R-T Axes : 000 042 060 degrees QTc Int : 464 ms Atrial flutter with variable A-V block Abnormal ECG Confirmed by JESSICA JAY, RAMON ([id number]), proposal editor LEYDI GUZMAN ([id number]) on 09/17/2022 11:23:42 AM Referred By: PRESTON Confirmed By:RAMON LOPEZ MD
--- NOTE | 2022-09-14 21:50 | RAD_ITS ---
STUDY: X-RAY CHEST REASON FOR EXAM: Male, 72 years old. chest pain TECHNIQUE: Single AP portable view of the chest. COMPARISON: 07/15/2021 FINDINGS: Poor inspiration with some bibasilar atelectasis. There is no demonstrated pleural abnormality. There is moderate cardiac enlargement. Normal mediastinum and annie. Normal visualized pulmonary arteries. There is atherosclerotic tortuosity of the aortic arch and descending thoracic aorta. Normal visualized thoracic spine. Normal visualized ribs, clavicles, and shoulders. There is no demonstrated abnormality of the visualized soft tissue structures of the upper abdomen. RAD/Chest 1 View (Portable) IMPRESSION: Poor inspiration with some bibasilar atelectasis. Electronically Signed: Brian Garner MD at 22:11 [facility] ,
[2022-09-14 21:58] LABS: Absolute Lymphocyte Count 2.71 X10^3/uL (0.83-4.51); Absolute Neutrophil Count 11.1 X10^3/uL (2.0-7.7); Basophil# 0.07 X10^3/uL; Basophil% 0.5 % (0-1); Eosinophil# 0.12 X10^3/uL; Eosinophils% 0.8 % (0-5); Lymphocyte # 2.71 X10^3/ul (0.83-4.51); Lymphocyte % 17.5 % (19-41); Mean Corp Hgb Conc 33.6 g/dL (32-36); Mean Corpuscular Hgb 29.7 pg (27.0-32.0); Mean Corpuscular Volume 88.3 fL (80-94); Monocyte# 1.43 X10^3/uL; Monocyte% 9.2 % (0-10); NRBC Flagged by Analyzer 0 % (0-5); Neutrophil # 11.09 X10^3/uL (2.7-7.7); Neutrophil % 71.6 % (47-70); Platelet Count 301 K/mm3 (150-450); RBC Distribution Width CV 13.2 % (11.6-14.6); RBC Distribution Width SD 42.3 fl (35.1-43.9); White Blood Count 15.5 K/mm3 (4.4-11.0)
--- NOTE | 2022-09-14 22:08 | CT_ITS ---
STUDY: CTA CHEST REASON FOR EXAM: Male, 72 years old. chest pain RADIATION DOSAGE (If Supplied By Facility): CTDIvol = ( 13.50 ) mGy, DLP = ( 426.32 ) mGycm TECHNIQUE: The examination was performed with the intravenous administration of IV 100mL Isovue-370. Post-processing of the angiographic images was performed, with multiplanar reformation and 3D reconstruction. Individualized dose optimization techniques were used for this CT. COMPARISON: 06/26/2021, chest x-ray earlier today FINDINGS: Normal enhancement of the main pulmonary artery and right and left pulmonary arteries. Normal enhancement of the bilateral peripheral pulmonary arteries. There is no demonstrated pulmonary embolism. Normal thoracic aorta and visualized great vessels. There is no demonstrated aortic dissection. Normal heart and pericardium. Diffuse severe wall thickening of the esophagus worrisome for esophagitis. Normal mediastinum. Normal hilar regions. Normal visualized trachea and bronchi. The lungs are well expanded. Mild emphysema. No noncalcified nodule or mass. Normal pleura. Normal chest wall structures. Normal osseous structures. Normal visualized upper abdomen. CT/CTA Chest W/WO Contrast IMPRESSION: 1. No CT evidence of pulmonary embolism. 2. Suspect esophagitis. Endoscopy may be useful. Electronically Signed: Brian Garner MD at 23:31 EST ,
[2022-09-14 22:13] LABS: Anion Gap 5 (5-15); BUN 18 mg/dL (7-18); BUN/Creat Ratio 12.2 RATIO (10-20); Calcium,Total 9.8 mg/dL (8.5-10.1); Chloride 103 mmol/L (98-107); Creatinine, Serum 1.47 mg/dL (0.70-1.30); EST Glomerular Filtration Rate 50 mL/min (>60); Est Glom Filt Rate - Afr Amer 61 mL/min (>60); Estimated Creatinine Clearance 48.28 ml/min; Glucose 158 mg/dL (74-106); Sodium Level 137 mmol/L (136-145); Troponin-I HS 6 pg/mL (3.0-78.0)
[2022-09-14] MEDS: dilTIAZem 25 MG/5 ML Vial 15 MG IV BOLUS (22:17)
[2022-09-14 22:26] VITALS: BP 107/77; PULSE 87; RESP 20
[2022-09-14 22:35] LABS: Hematocrit 57.4 % (40-54)
[2022-09-14 22:36] LABS: Hemoglobin 19.3 g/dL (13.0-16.5)
[2022-09-14 22:46] VITALS: BP 110/74; PULSE 83; RESP 18; O2SAT 88
[2022-09-14 23:00] VITALS: BP 105/84; PULSE 87; RESP 20; O2SAT 88
[2022-09-14] MEDS: APIXABAN 5 MG TABLET PO (23:52)
[2022-09-14 23:56] LABS: Magnesium 2.1 mg/dL (1.6-2.6)
[2022-09-14 23:59] LABS: Prothrombin Time (Protime)PT. 13.3 SECONDS (11.7-14.9)
[2022-09-15] VITALS: PULSE 87; RESP 19; O2SAT 89
[2022-09-15] LABS: Partial Thromboplast Time 32.3 Seconds (24.1-36.2)
--- NOTE | 2022-09-15 00:13 | ED.RN ---
PT REFUSES TO WEAR NASAL CANNULA. RA POX NOTED AT 87-88%.
[2022-09-15 00:24] LABS: Troponin-I HS 6 pg/mL (3.0-78.0)
[2022-09-15 01:01] VITALS: BP 95/57; PULSE 93; RESP 18; O2SAT 89
--- NOTE | 2022-09-15 01:01 | EDS_ITS ---
HPI History of Present Illness Chief Complaint: Chest Pain Narrative Narrative: Patient is a 72-year-old male with past medical history of atrial fibrillation/atrial flutter. He states that he is supposed be taking Eliquis for this but has not done so for approximately 6 months based on the cost of medication. He states that today starting around 8 or 10 AM he developed some lower mid chest discomfort. He states there was no radiation of the pain he denies any nausea vomiting diaphoresis or shortness of breath associated with this. He states that he had concerned that this could be cardiac in nature as his symptoms have persisted for multiple hours without resolution and he knows he is not been on the blood thinner as directed. [facility] Medical History (Updated 09/15/22 @ 01:[address] Mauro Locke DO) Atrial fibrillation Home Medications apixaban 5 mg tablet (Eliquis) 5 mg PO BID #60 tabs 07/16/21 [Rx Last Taken Unknown] diltiazem HCl 120 mg capsule,extended release 12 hr 120 mg PO BID #60 caps 07/16/21 [Rx Last Taken Unknown] metformin 500 mg tablet 500 mg PO DAILY #30 tabs 07/16/21 [Rx Last Taken Unknown] apixaban 5 mg tablet (Eliquis) 5 mg PO BID 30 days #60 tabs 09/15/22 [Rx Last Taken Unknown] pantoprazole 40 mg tablet,delayed release (Protonix) 40 mg PO DAILY #30 tabs 09/15/22 [Rx Last Taken Unknown] Allergy/AdvReac Type Severity Reaction Status Date / Time Sulfa (Sulfonamide Allergy Unknown Unknown Verified 09/14/22 21:41 Antibiotics) as a child Surgical History History of hip replacement Social History household members: none housing: apartment Smoking Status: Heavy Smoker (>10/day) alcohol intake: never substance use type: does not use ROS ROS ED Constitutional Constitutional ED: Denies chills or fever(s) ENT ENT ED: Denies sore throat Cardiovascular Cardiovascular: Reports chest pain, palpitations and racing heartbeat Respiratory/Chest Respiratory/Chest: Reports cough; Denies dyspnea Gastrointestinal Gastrointestinal: Denies abdominal pain, diarrhea, nausea or vomiting Genitourinary Genitourinary ED: Denies dysuria Musculoskeletal Musculoskeletal: Denies back pain or myalgias Integumentary Denies rash Neurologic Neurologic: Denies headache(s) Hematologic/Lymphatic Hematologic/Lymphatic: Denies easy bleeding or easy bruising EXAM Physical Exam Const Vital Signs: 09/14/22 21:38 09/14/22 21:48 09/14/22 22:26 Temperature 97.6 F L Temperature Source Temporal Pulse Rate 122 H 110 H 87 Respiratory Rate 15 21 H 20 H Respiratory Effort Blood Pressure 120/91 H 107/77 Blood Pressure Mean 100 87 Pulse Ox 91 Oxygen Delivery Method Room Air Room Air 09/14/22 21:48 09/14/22 22:46 09/14/22 23:00 Temperature Temperature Source Pulse Rate 83 87 Respiratory Rate 18 20 H Respiratory Effort Blood Pressure 110/74 105/84 H Blood Pressure Mean 86 91 Pulse Ox 89 88 88 Oxygen Delivery Method Room Air Room Air Room Air 09/15/22 00:00 09/15/22 00:16 09/15/22 01:01 Temperature Temperature Source Pulse Rate 87 93 Respiratory Rate 19 H 18 Respiratory Effort Non-Labored Blood Pressure 95/57 L Blood Pressure Mean Pulse Ox 89 89 Oxygen Delivery Method Room Air Positive well nourished and well developed General Appearance ED: well developed HEENT Reports dry mucous membranes Mouth ED: Yes dry mucous membranes Mouth: dry mucous membranes Eyes PERRL and EOMs intact bilaterally General Eye ED: Negative for scleral icterus Neck supple and no JVD Chest Wall palpation of chest normal Resp normal respiratory effort and clear to auscultation bilaterally Resp Narrative: Breath sounds are diminished throughout but overall clear to auscultation without nasal flaring retractions tachypnea or accessory muscle use Cardio Rate: other Other Details: Irregularly irregular rhythm with slightly tachycardic rate Radial pulses are plus 2 out of 4 bilaterally are equal and symmetric GI normal to inspection, nondistended, normoactive bowel sounds, non-tender, non- distended and no masses GI Narrative: No voluntary guarding or rigidity no pulsatile mass Auscultation: normoactive bowel sounds Palpation: soft Extremity normal to inspection Extremity Narrative: No asymmetric edema no pitting edema negative Homans' sign bilaterally Neuro oriented x3, CN's II-XII intact bilaterally and no sensory deficits noted Sensorium / Orientation: alert Motor Exam: strength 5/5 throughout Psych mental status grossly normal Skin no rashes or lesions noted General Skin Exam: Negative for jaundice MDM MDM Lab Data Attestation: I reviewed the patient's lab results. Lab results narrative: Patient presented to the ER in atrial flutter technically with rapid ventricular response with a rate just above 100. As he reports that he has had pain for 8 to 10 hours as been constant in nature and also states has not been on his blood thinner medication for about 6 months I had high concern this could be pulmonary embolus as a cause of his symptoms. Secondary to his basic labs and a CTA were ordered. Patient's white count is slightly elevated at 15 but his imaging studies did not reveal any type of pneumonia. Also as he is not been on a blood thinner there was concern for PE but CTA did not reveal any type of pulmonary embolus either. The patient's initial and delta troponin were stable at 6 and with constant discomfort for 8 to 10 hours this goes against any type of acute cardiac injury. The patient was given a dose of Cardizem which chart review shows he takes at home and has reduced his heart rate to below 100. At this time as work-up shows no signs of active cardiac damage he does not have a PE and his rate has improved with medication I do not feel he needs to be placed as his vitals have stabilized and his electrolytes are normal and work-up does not show PE or acute CAD. Patient will be given prescription for Eliquis to prevent DVT/PE and stroke and he agrees to follow-up on an outpatient basis to discuss further treatment options secondary to his cardiac dysrhythmia Labs: Laboratory Results - last 24 hr 09/14/22 09/14/22 09/14/22 21:40 21:40 22:20 WBC 15.5 H RBC 6.50 H Hgb 19.3 H* Hct 57.4 H MCV 88.3 MCH 29.7 MCHC 33.6 RDW Std Deviation 42.3 RDW Coeff of Zee 13.2 Plt Count 301 MPV 9.0 Immature Gran % (Auto) 0.400 Neut % (Auto) 71.6 H Lymph % (Auto) 17.5 L [place] % (Auto) 9.2 Eos % (Auto) 0.8 Baso % (Auto) 0.5 Absolute Neuts (auto) 11.1 H Absolute Lymphs (auto) 2.71 Nucleated RBC % 0 Diff Path Review May foll PT Cancelled INR Cancelled APTT Cancelled Sodium 137 Potassium 4.0 Chloride 103 Carbon Dioxide 29.0 Anion Gap 5 BUN 18 Creatinine 1.47 H Estim Creat Clear Calc 48.28 Est GFR (MDRD) Af Amer 61 Est GFR (MDRD) Non-Af 50 L BUN/Creatinine Ratio 12.2 Glucose 158 H Calcium 9.8 Magnesium Troponin I High Sens 6 09/14/22 09/14/22 09/14/22 22:20 23:40 23:50 WBC RBC Hgb Hct MCV MCH MCHC RDW Std Deviation RDW Coeff of Zee Plt Count MPV Immature Gran % (Auto) Neut % (Auto) Lymph % (Auto) [place] % (Auto) Eos % (Auto) Baso % (Auto) Absolute Neuts (auto) Absolute Lymphs (auto) Nucleated RBC % Diff Path Review PT 13.3 INR 1.0 APTT 32.3 Sodium Potassium Chloride Carbon Dioxide Anion Gap BUN Creatinine Estim Creat Clear Calc Est GFR (MDRD) Af Amer Est GFR (MDRD) Non-Af BUN/Creatinine Ratio Glucose Calcium Magnesium 2.1 Troponin I High Sens 6 Radiography Diagnostic Testing: Clinical Impression(s) from Imaging Studies Chest X-Ray 09/14/22 21:50 IMPRESSION: Poor inspiration with some bibasilar atelectasis. Electronically Signed: Brian Garner MD at 22:11 EST Reading Location ID and State: [place] [facility] Tel , Service support , Chest CTA 09/14/22 22:[address]: 1[address] No [address] evidence of pulmonary embolism. 2. Suspect esophagitis. Endoscopy may be useful. Electronically Signed: Brian Garner MD at 23:31 EST , Discharge Plan Triage Chief Complaint: Chest Pain ED Provider: Mauro Locke Dx/Rx/DC Orders Clinical Impression: Atrial flutter, Dehydration, Esophagitis Instructions: ED About Arrhythmias Prescriptions: New pantoprazole [Protonix] 40 mg tablet,delayed release (DR/EC) 40 mg PO DAILY Qty: 30 0RF Eliquis 5 mg tablet 5 mg PO BID 30 Days Qty: 60 0RF No Action metformin 500 mg tablet 500 mg PO DAILY Qty: 30 0RF Eliquis 5 mg tablet 5 mg PO BID Qty: 60 0RF Rx Instructions: PT HAS NOT BEEN TAKING X 6 MONTHS diltiazem HCl 120 mg capsule,extended release 12 hr 120 mg PO BID Qty: 60 0RF Primary Care Provider: Care Physician,No Primary Referrals: Diandra Bermudez MD [Med Staff - Active Staff] - Care Physician,No Primary [Primary Care Provider] - Activity Restrictions/Additional Instructions: Please continue your diltiazem to control your heart rate and take the Eliquis to prevent any blood clot or stroke. Follow-up with cardiology to discuss further treatment options for your atrial flutter and return to the ER should you have any further concerns Disposition Disposition: Home, Self Care Discharge Date/Time: 09/15/22 01:14
[2022-09-17 12:36] LABS: Pathologist Review Reviewed
== END 2022-09-15 01:14 | disposition home or self-care (01) ==
PROVIDERS: Emergency Provider Emergency Medicine; Visit Provider Emergency Medicine
DX: I48.92 Unspecified atrial flutter (principal); K20.90 Esophagitis, unspecified without bleeding; F17.200 Nicotine dependence, unspecified, uncomplicated; E86.0 Dehydration; Z79.01 Long term (current) use of anticoagulants
CPT/HCPCS: 71045; 71275; 80048; 83735; 84484; 85025; 85610; 85730; 93005; 96361; 96374; 99285; Q9967; A4216